=== PATIENT | male | born 1970 | race Caucasian/White ===

== ENCOUNTER 2019-10-13 15:27 | Emergency (ER) | payer MEDICAID ==
[~2019-10-13] VITALS: Ht 180.3 cm; Wt 90.5 kg
[2019-10-13 15:28] VITALS: BP 141/98
--- NOTE | 2019-10-13 15:58 | NUR ---
THROUGHPUT RN: 3E [facility]LLY[facility] DECLINED PT.
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
--- NOTE | 2019-10-13 16:26 | NUR ---
THROUGHPUT RN: [facility] SPOKE W/ ANGLE FROM [facility] WHO DECLINED TRANSFER. SPOKE W/ ALFA FROM [facility] WHO DECLINED TRANSFER. PSN FAXED TO [phone]. CONFIRMATION RECEIVED.
[2019-10-13 16:27] LABS: BASOPHILS # (AUTO) 0.02 x10^3/uL (0-0.1); BASOPHILS % (AUTO) 0 % (0-1); EOSINOPHILS # (AUTO) 0.15 x10^3/uL (0-0.4); EOSINOPHILS % (AUTO) 2 % (1-7); LYMPHOCYTES # (AUTO) 1.37 x10^3/uL (1-3.4); LYMPHOCYTES % (AUTO) 18 % (22-44); MD NO; MEAN CORPUSCULAR HGB CONC 33.9 g/dL (33.2-36.2); MEAN CORPUSCULAR VOLUME 85.3 fL (81-97); MEAN PLATELET VOLUME 8.5 fL (7.4-10.4); MONOCYTES # (AUTO) 0.51 x10^3/uL (0.2-0.8); MONOCYTES % (AUTO) 7 % (2-9); NEUTROPHILS % (AUTO) 73 % (42-75); PLATELET COUNT 314 x10^3/uL (130-400); RED BLOOD COUNT 5.19 x10^6/uL (4.38-5.82); RED CELL DISTRIBUTION WIDTH 13.7 % (9.4-14.8)
[2019-10-13 16:30] LABS: ALBUMIN 4.2 g/dL (3.4-5.0); ANION GAP 8 mmol/L (5-15); CALCIUM 8.7 mg/dL (8.5-10.1); CHLORIDE 108 mmol/L (98-107); CREATININE 0.96 mg/dL (0.7-1.3); SALICYLATE LEVEL < 1.7 mg/dL (2.8-20.0)
--- NOTE | 2019-10-13 17:58 | NUR ---
URINE COLLECTED/SENT TO LAB. PT PROVIDED MEAL TRAY. SITTER AT [facility]AY, PT CALM AND COOPERATIVE WITH CARE.
[2019-10-13 18:15] LABS: AMPHETAMINE SCREEN, URINE Negative (Negative); BARBITURATE SCREEN, URINE Negative (Negative); BENZODIAZEPINE SCREEN, URINE Negative (Negative); CANNABINOID SCREEN, URINE Positive (Negative); COCAINE SCREEN, URINE Negative (Negative); METHADONE SCREEN, URINE Negative (Negative); OPIATE SCREEN, URINE Negative (Negative)
--- NOTE | 2019-10-13 18:22 | NUR ---
Patient denied by [facility] from [facility] to them not being contracted with [facility].
--- NOTE | 2019-10-13 18:27 | NUR ---
[facility] has [employer] [place] and conformation received. Called [facility] as patient is 49 years old and they state they are not contracted with [employer].
--- NOTE | 2019-10-13 18:30 | NUR ---
MEAL TRAY PROVIDED, SITTER AT [facility].
--- NOTE | 2019-10-13 18:44 | NUR ---
Accepted at by Dr. Castelan
--- NOTE | 2019-10-13 18:45 | NUR ---
REPORT TO [place], TRANSFER PAPERWORK STARTED. MED REC COMPLETED TO BEST OF PT'S RECOLLECTION.
--- NOTE | 2019-10-13 18:52 | NUR ---
Called [employer] and they state that someone will need to call the "eligibility department" in the morning to verify patients insurance. Spoke with Registration who state that patients insurance is active at thie time.
[2019-10-13] MEDS ORDERED: VENL75CA PO (18:56)
[2019-10-13] MEDS ORDERED: QUET100T4 PO (18:56)
[2019-10-13] MEDS ORDERED: QUET50TA5 PO (18:56)
[2019-10-13] MEDS ORDERED: BUPR-86 PO (18:56)
--- NOTE | 2019-10-13 18:59 | NUR ---
Spoke with case management who states that [facility] should transport patient even without [employer] auth.
--- NOTE | 2019-10-13 19:02 | NUR ---
Explained authorization to [facility] and they state that they will come get patient in 30 min from now.
== END 2019-10-13 19:39 ==
LOC: ED 16:00
DX: R45.851 Suicidal ideations (principal); F33.9 Major depressive disorder, recurrent, unspecified
CPT/HCPCS: 36415; 80048; 80307; 82040; 85025; 99285